=== PATIENT | female | born 1955 | race Caucasian/White ===

== ENCOUNTER 2022-10-28 19:21 | Emergency (ER) | payer MEDICARE, MEDICAID ==
[~2022-10-28] VITALS: Ht 167.6 cm; Wt 50.8 kg
[2022-10-28 19:31] VITALS: BP 103/59
[2022-10-28 19:45] VITALS: BP 102/53
[2022-10-28 20:00] VITALS: BP 96/52
[2022-10-28 20:49] VITALS: BP 102/53
== END 2022-10-28 20:50 | disposition home or self-care (01) ==
LOC: ED 19:21
PROC: 0HQ0XZZ Repair Scalp Skin, External Approach (ICD-10-PCS; principal; 2022-10-28)
DX: S01.01XA Laceration without foreign body of scalp, initial encounter (principal); I10 Essential (primary) hypertension; F17.200 Nicotine dependence, unspecified, uncomplicated; W01.198A Fall on same level from slipping, tripping and stumbling with subsequent striking against other object, initial encounter

== ENCOUNTER 2022-11-05 11:26 | Emergency (ER) | payer MEDICARE, MEDICAID ==
[~2022-11-05] VITALS: Ht 167.6 cm; Wt 50.0 kg
[2022-11-05 13:10] VITALS: BP 100/51
== END 2022-11-05 13:15 | disposition home or self-care (01) ==
LOC: ED 11:26
DX: S01.01XD Laceration without foreign body of scalp, subsequent encounter (principal); S93.602D Unspecified sprain of left foot, subsequent encounter; I10 Essential (primary) hypertension; F17.200 Nicotine dependence, unspecified, uncomplicated; W01.0XXD Fall on same level from slipping, tripping and stumbling without subsequent striking against object, subsequent encounter